=== PATIENT | male | born 1965 | race Caucasian/White ===

== ENCOUNTER 2022-09-07 15:05 | Emergency (ER) | payer BC ==
[2022-09-07 15:40] VITALS: BP 134/80; PULSE 59; RESP 118; TEMP 97.8
[2022-09-07] MEDS ORDERED: LIDOCAINE 1% INJ 10MG/ML (20 ML MDV) SQ ONE (16:19)
--- NOTE | 2022-09-07 16:27 | ED ---
Wound/Laceration HPI - General Chief Complaint: Wound/Laceration Stated Complaint: Left Leg Laceration Time Seen by Provider: 09/07/22 16:11 Source: patient, RN notes reviewed Mode of arrival: wheelchair Limitations: no limitations - History of Present Illness Initial Comments: This is a 49-year-old male who presents to the emergency department for a lac eration. Patient states that he cut his left ankle while moving a piece of sheet metal earlier today. Pain is controlled at this time. Tetanus vaccine is up-to-date. Denies any fevers, chills, sore throat, cough, dyspnea, chest pain, palpitations, abdominal pain, nausea, vomiting, diarrhea, back pain, or headaches. - Related Data Allergies Allergy/AdvReac Type Severity Reaction Status Date / Time No Known Allergies Allergy Verified 09/07/22 15:40 Review of Systems ROS Statement: Those systems with pertinent positive or pertinent negative responses have been documented in the HPI. ROS Other: All systems not noted in ROS Statement are negative. Past Medical History Past Medical History: No Reported History History of Any Multi-Drug Resistant Organisms: None Reported Past Surgical History: No Surgical Hx Reported Past Psychological History: No Psychological Hx Reported Smoking Status: Never smoker Past Alcohol Use History: Rare Past Drug Use History: None Reported General Exam Limitations: no limitations General appearance: alert, in no apparent distress Head exam: Present: atraumatic, normocephalic, normal inspection Respiratory exam: Present: normal lung sounds bilaterally. Absent: respiratory distress, wheezes, rales, rhonchi, stridor Cardiovascular Exam: Present: regular rate, normal rhythm, normal heart sounds. Absent: systolic murmur, diastolic murmur, rubs, gallop, clicks Neurological exam: Present: alert, oriented X3, CN II-XII intact Psychiatric exam: Present: normal affect, normal mood Skin exam: Present: other (4 cm laceration to the anterior aspect of the left ankle. Active bleeding. Visible subcutaneous tissue.) Course Vital Signs 09/07/22 15:36 Temperature 97.8 F Pulse Rate 59 L Respiratory 118 H Rate Blood Pressure 134/80 O2 Sat by Pulse 97 Oximetry Procedures - Laceration Laceration #1 Consent Obtained: verbal consent Indication: laceration Site: lower extremity Size (cm): 4 Description: linear Depth: simple, single layer Anesthetic Used: lidocaine 1% Anesthesia Technique: local infiltration Amount (mls): 5 Pre-repair: wound explored, irrigated extensively Type of Sutures: nylon Size of Sutures: 4-0 Number of Sutures: 5 Technique: simple, interrupted Medical Decision Making - Medical Decision Making This is a 57-year-old male who presents to the emergency department for a laceration. Was pt. sent in by a medical professional or institution? @ -No Did you speak to anyone other than the patient for history? @ -No Did you review nursing and triage notes? @ -Yes, and I agree, it is accurate with regards to the patient's symptoms. Were old charts reviewed? @ -No Differential Diagnosis? @ -Not applicable EKG interpreted by me (3pts min.)? @ -Not obtained X-rays interpreted by me (1pt min.)? @ -Not obtained CT interpreted by me (1pt min.)? @ -Not obtained U/S interpreted by me (1pt. min.)? @ -Not obtained What testing was considered but not performed? (CT, X-rays, U/S, labs)? Why? @ -None What meds were considered but not given? Why? @ -None Did you discuss the management of the patient with other professionals? @ -No Did you reconcile home meds? @ -No Was smoking cessation discussed for >3mins.? @ -No Was critical care preformed (if so, how long)? @ -No Were there social determinants of health that impacted care today? How? (Homelessness, low income, unemployed, alcoholism, drug addiction, transportation, low edu. Level, literacy, decrease access to med. care, halfway, rehab)? @ -No Was there de-escalation of care discussed even if they declined? (Discuss DNR or withdrawal of care, Hospice)? @ -No What co-morbidities impacted this encounter? (DM, HTN, Smoking, COPD, CAD, Cancer, CVA, Hep., AIDS, mental health diagnosis, sleep apnea, morbid obesity)? @ -None Was patient admitted / discharged? @ -Discharged. Laceration was thoroughly cleansed and sutures were applied. Tetanus vaccine is already up-to-date. Advised ibuprofen and Tylenol as needed for pain relief. He is instructed to return in 7-10 days for suture removal. Undiagnosed new problem with uncertain prognosis? @ -None Drug Therapy requiring intensive monitoring for toxicity (Heparin, Nitro, In sulin, Cardizem)? @ -None Were any procedures done? @ -Suture placement Diagnosis/symptom? @ -Laceration Acute, or Chronic, or Acute on Chronic? @ -Acute Uncomplicated (without systemic symptoms) or Complicated (systemic symptoms)? @ -Uncomplicated Side effects of treatment? @ -None Exacerbation, Progression, or Severe Exacerbation] @ -Not applicable Poses a threat to life or bodily function? @ -No Return precautions reviewed in depth, the patient is instructed to return to the emergency department with any new, worsening, or concerning symptoms. Patient verbalized understanding. This case was discussed in detail with the attending ED physician, Dr. Cason. Presentation, findings, and treatment plan discussed in detail as well. Disposition Clinical Impression: Laceration Disposition: HOME SELF-CARE Instructions (If sedation given, give patient instructions): Care For Your Stitches (ED) Additional Instructions: Return to the emergency department with any new, worsening, or concerning symptoms and in 7-10 days for removal of the stitches. Alternate with ibuprofen and Tylenol as needed for pain relief. Follow up with your primary care provider in 1-2 days. Is patient prescribed a controlled substance at d/c from ED?: No Referrals: Mike Lopez MD [Primary Care Provider] - 1-2 days
== END 2022-09-07 17:17 | disposition home or self-care (01) ==
LOC: EC 15:05
DX: S91.012A Laceration without foreign body, left ankle, initial encounter (principal); W26.8XXA Contact with other sharp object(s), not elsewhere classified, initial encounter
CPT/HCPCS: 12002; 99282

== ENCOUNTER 2022-12-04 17:16 | Observation (INO) | payer BC ==
[2022-12-04 17:57] LABS: Basophils % (A) 0 %; Eosinophils # (A) 0.2 k/uL (0-0.7); Eosinophils % (A) 2 %; HCT 46.5 % (39.0-53.0); HGB 15.9 gm/dL (13.0-17.5); Lymphocytes # (A) 2.5 k/uL (1.0-4.8); Lymphocytes % (A) 34 %; MCHC 34.2 g/dL (31.0-37.0); MCV 87.8 fL (80.0-100.0); Monocytes # (A) 0.4 k/uL (0-1.0); Monocytes % (A) 5 %; Neutrophils % (A) 55 %; Platelet Count 281 k/uL (150-450); RBC 5.29 m/uL (4.30-5.90); RDW 12.7 % (11.5-15.5); WBC 7.2 k/uL (3.8-10.6)
[2022-12-04 18:03] LABS: AST 29 U/L (17-59); African American GFR (CKD) >90 (>60 ml/min/1.73 sqM); Albumin 4.3 g/dL (3.5-5.0); Alkaline Phosphatase 116 U/L (38-126); Anion Gap 11 mmol/L; Blood Urea Nitrogen 16 mg/dL (9-20); Calcium 9.4 mg/dL (8.4-10.2); Carbon Dioxide 21 mmol/L (22-30); Chloride 107 mmol/L (98-107); Glucose 100 mg/dL (74-99); Magnesium 2.2 mg/dL (1.6-2.3); Non-African American GFR(CKD) >90 (>60 ml/min/1.73 sqM); Potassium 4.4 mmol/L (3.5-5.1); Sodium 139 mmol/L (137-145); Total Bilirubin 0.4 mg/dL (0.2-1.3); Total Protein 7.8 g/dL (6.3-8.2)
[2022-12-04 18:04] LABS: Partial Thromboplastin Time 26.5 sec (22.0-30.0); Prothrombin Time 10.6 sec (10.0-12.5)
--- NOTE | 2022-12-04 18:29 | XR ---
EXAMINATION TYPE: XR chest 2V DATE OF EXAM: 12/04/2022 COMPARISON: NONE HISTORY: Chest pain. TECHNIQUE: Frontal and lateral views of the chest are obtained. FINDINGS: There is no focal air space opacity, pleural effusion, or pneumothorax seen. The cardiac silhouette size is within normal limits. The osseous structures are intact. IMPRESSION: No acute cardiopulmonary process.
[2022-12-04] MEDS ORDERED: DILTIAZEM DRIP BOLUS FROM BAG 1 MG SOLN IV ONE (18:39)
[2022-12-04] MEDS ORDERED: DILTIAZEM 125 MG in SODIUM CHLORIDE 0.9% 100 ML IV SCH (19:15)
[2022-12-04 19:35] LABS: ALT 41 U/L (4-49)
--- NOTE | 2022-12-04 19:52 | ED ---
General Adult HPI - General Chief complaint: Chest Pain Stated complaint: Chest Pain,Racing Heartbeat Time Seen by Provider: 12/04/22 17:20 Source: patient Mode of arrival: wheelchair Limitations: no limitations - History of Present Illness Initial comments: 57-year-old male with no reported past medical history who presents to the emergency department reporting chest pain and rapid heart rate. States that his symptoms have been present for the past couple of weeks. He has intermittent fast heart rate however he states it usually doesn't last long. He saw his primary care doctor and mentioned it to him. They reported that the patient needed a heart monitor which she never obtained. Today the patient has had persistently elevated heart rate which made him come into the emergency room for evaluation. He denies any cardiac history. Reports that his mom has a history of valvular A. fib while his father has a history of non-valvular A. fib. Patient has had a stress test however this was greater than 10 years ago. He reports to a constant pressure in his chest. No associated shortness of breath. No calf pain or swelling. No history of DVT or PE. No ripping or tearing sensation to his back. No other alleviating, precipitating or modifying factors - Related Data Home Medications Medication Instructions Recorded Confirmed No Known Home Medications 12/04/22 12/04/22 Allergies Allergy/AdvReac Type Severity Reaction Status Date / Time No Known Allergies Allergy Verified 12/04/22 18:19 Review of Systems ROS Statement: Those systems with pertinent positive or pertinent negative responses have been documented in the HPI. ROS Other: All systems not noted in ROS Statement are negative. Past Medical History Past Medical History: No Reported History History of Any Multi-Drug Resistant Organisms: None Reported Past Surgical History: No Surgical Hx Reported Past Psychological History: No Psychological Hx Reported Smoking Status: Never smoker Past Alcohol Use History: Rare Past Drug Use History: None Reported General Exam Limitations: no limitations General appearance: alert, in no apparent distress Head exam: Present: atraumatic, normocephalic, normal inspection Eye exam: Present: normal appearance, PERRL, EOMI. Absent: scleral icterus, conjunctival injection, periorbital swelling ENT exam: Present: normal exam, mucous membranes moist Neck exam: Present: normal inspection. Absent: tenderness, meningismus, lymphadenopathy Respiratory exam: Present: normal lung sounds bilaterally. Absent: respiratory distress, wheezes, rales, rhonchi, stridor Cardiovascular Exam: Present: tachycardia, irregular rhythm, normal heart sounds. Absent: systolic murmur, diastolic murmur, rubs, gallop, clicks GI/Abdominal exam: Present: soft, normal bowel sounds. Absent: distended, tenderness, guarding, rebound, rigid Extremities exam: Present: normal inspection, full ROM, normal capillary refill. Absent: tenderness, pedal edema, joint swelling, calf tenderness Back exam: Present: normal inspection Neurological exam: Present: alert, oriented X3, CN II-XII intact Psychiatric exam: Present: normal affect, normal mood Skin exam: Present: warm, dry, intact, normal color. Absent: rash Course Vital Signs 12/04/22 12/04/22 12/04/22 17:20 18:28 18:53 Temperature 97.4 F L Pulse Rate 63 156 H Pulse Rate [ 158 H Refinery Operator Visbreaking ] Respiratory 18 6 L Rate Blood Pressure 123/79 O2 Sat by Pulse 97 Oximetry 12/04/22 12/04/22 12/04/22 18:54 18:56 18:58 Temperature Pulse Rate 144 H 151 H 156 H Pulse Rate [ Refinery Operator Visbreaking ] Respiratory 14 13 28 H Rate Blood Pressure O2 Sat by Pulse 97 98 Oximetry 12/04/22 12/04/22 12/04/22 19:00 19:02 19:04 Temperature Pulse Rate 156 H 98 107 H Pulse Rate [ Refinery Operator Visbreaking ] Respiratory 14 18 17 Rate Blood Pressure 111/91 O2 Sat by Pulse 98 97 96 Oximetry 12/04/22 12/04/22 12/04/22 19:06 19:08 19:10 Temperature Pulse Rate 110 H 105 H 96 Pulse Rate [ Refinery Operator Visbreaking ] Respiratory 16 Rate Blood Pressure 111/91 O2 Sat by Pulse 95 96 97 Oximetry 12/04/22 12/04/22 12/04/22 19:12 19:14 19:30 Temperature Pulse Rate 92 102 H 101 H Pulse Rate [ Refinery Operator Visbreaking ] Respiratory 17 Rate Blood Pressure 111/91 O2 Sat by Pulse 97 98 96 Oximetry 12/04/22 12/04/22 12/04/22 19:45 20:00 20:15 Temperature Pulse Rate 98 71 73 Pulse Rate [ Refinery Operator Visbreaking ] Respiratory 18 18 17 Rate Blood Pressure 131/95 131/95 118/86 O2 Sat by Pulse 97 97 97 Oximetry 12/04/22 12/04/2212/04/23 20:30 21:00 21:30 Temperature Pulse Rate 72 86 114 H Pulse Rate [ Refinery Operator Visbreaking ] Respiratory 16 20 Rate Blood Pressure 118/86 121/75 118/82 O2 Sat by Pulse 96 95 96 Oximetry 12/04/22 22:00 Temperature Pulse Rate 161 H Pulse Rate [ Refinery Operator Visbreaking ] Respiratory 19 Rate Blood Pressure 106/91 O2 Sat by Pulse 96 Oximetry Medical Decision Making - Medical Decision Making Was pt. sent in by a medical professional or institution (, PA, IT INVESTMENT/PORTFOLIO MANAGER, urgent care, hospital, or penitentiary...) When possible be specific @ -No Did you speak to anyone other than the patient for history (EMS, parent, family, police, friend...)? What history was obtained from this source @ -Spoke with the patient's significant other Did you review nursing and triage notes (agree or disagree)? Why? @ -I reviewed and agree with nursing and triage notes Were old charts reviewed (outside hosp., previous admission, EMS record, old EKG, old radiological studies, urgent care reports/EKG's, penitentiary records)? Report findings @ -No old charts were reviewed Differential Diagnosis (chest pain, altered mental status, abdominal pain women, abdominal pain men, vaginal bleeding, weakness, fever, dyspnea, syncope, headache, dizziness, GI bleed, back pain, seizure, CVA, palpatations, mental health, musculoskeletal)? @ -Differential Palpitations Ventricular arrhythmias, atrial arrhythmias, myocardial infarction, anemia, thyrotoxicosis, electrolyte imbalance, hypokalemia, pulmonary embolism, pulmonary disease, drugs, alcohol, anxiety, stress.... This is not meant to be an all-inclusive list. EKG interpreted by me (3pts min.). @ -EKG done at 1727 demonstrates sinus rhythm with a rate of 74. CA interval 149. QRS 89. QTC of 379. No acute ST segment elevations or depressions Repeat EKG done at 1823 demonstrates atrial flutter/tachycardia with a rate of 142. QRS 84. QTC of 350. No acute ST segment elevations or depressions Third EKG demonstrates sinus rhythm with rate of 67. CA interval 166. QRS 88. QTC of 380. No acute ST segment elevations or depressions X-rays interpreted by me (1pt min.). @ -Yes and demonstrates no acute process CT interpreted by me (1pt min.). @ -None done U/S interpreted by me (1pt. min.). @ -None done What testing was considered but not performed or refused? (CT, X-rays, U/S, labs)? Why? @ -None What meds were considered but not given or refused? Why? @ -None Did you discuss the management of the patient with other professionals (professionals i.e. DrLuma, PA, IT INVESTMENT/PORTFOLIO MANAGER, lab, RT, psych nurse, social group worker, olive grower, teacher, business services officer, welfare case worker)? Give summary @ -Hustler with Dr. Bae for admission Was smoking cessation discussed for >3mins.? @ -No Was critical care preformed (if so, how long)? @ -Yes, 35 minutes for management of heparin and Cardizem drip Were there social determinants of health that impacted care today? How? (Homelessness, low income, unemployed, alcoholism, drug addiction, transportation, low edu. Level, literacy, decrease access to med. care, senior care, rehab)? @ -No Was there de-escalation of care discussed even if they declined (Discuss DNR or withdrawal of care, Hospice)? DNR status @ -No What co-morbidities impacted this encounter? (DM, HTN, Smoking, COPD, CAD, Cancer, CVA, ARF, Chemo, Hep., AIDS, mental health diagnosis, sleep apnea, morbid obesity)? @ -None Was patient admitted / discharged? Hospital course, mention meds given and route, prescriptions, significant lab abnormalities, going to OR and other pertinent info. @ -Upon arrival patient was evaluated in the waiting room. 12-lead EKG was obtained which demonstrates normal sinus rhythm. Laboratory studies were obtained. The patient was then placed in a room. Once on the heart monitor was found that the patient was in A. fib/flutter. Repeat EKG was performed. IV was established. Laboratory studies were conducted and the patient has a chest x- ray performed. Patient is started on a Cardizem drip. Heparin is additionally added as patient does not have any contraindications. His Chadsvasc is 0. Patient does convert to a normal sinus rhythm. Repeat EKG is performed and the Cardizem is shut off. Patient will still be admitted for cardiology consultation and echo. Patient was agreeable to this and is admitted in stable condition Undiagnosed new problem with uncertain prognosis? @ -Yes Drug Therapy requiring intensive monitoring for toxicity (Heparin, Nitro, Insulin, Cardizem)? @ -Yes, Cardizem and heparin Were any procedures done? @ -No Diagnosis/symptom? @ -New onset A. fib with RVR Acute, or Chronic, or Acute on Chronic? @ -Acute Uncomplicated (without systemic symptoms) or Complicated (systemic symptoms)? @ -Complicated Side effects of treatment? @ -Bleeding, hypotension Exacerbation, Progression, or Severe Exacerbation? @ -No Poses a threat to life or bodily function? How? (Chest pain, [place], [place], pneumonia, PE, COPD, DKA, ARF, appy, cholecystitis, CVA, Diverticulitis, Homicidal, Suicidal, threat to staff... and all critical care pts) @ -Yes patient does have markedly elevated heart rate before treatment - Lab Data Result diagrams: 12/04/22 17:37 12/04/22 17:37 Lab Results 12/04/22 12/04/22 12/04/22 Range/Units 17:37 17:37 17:37 WBC 7.2 (3.8-10.6) k/uL RBC 5.29 (4.30-5.90) m/uL Hgb 15.9 (13.0-17.5) gm/dL Hct 46.5 (39.0-53.0) % MCV 87.8 (80.0-100.0) fL MCH 30.0 (25.0-35.0) pg MCHC 34.2 (31.0-37.0) g/dL RDW 12.7 (11.5-15.5) % Plt Count 281 (150-450) k/uL MPV 8.0 Neutrophils % 55 % Lymphocytes % 34 % Monocytes % 5 % Eosinophils % 2 % Basophils % 0 % Neutrophils # 4.0 (1.3-7.7) k/uL Lymphocytes # 2.5 (1.0-4.8) k/uL Monocytes # 0.4 (0-1.0) k/uL Eosinophils # 0.2 (0-0.7) k/uL Basophils # 0.0 (0-0.2) k/uL PT 10.6 (10.0-12.5) sec INR 1.0 (<1.2) APTT 26.5 (22.0-30.0) sec Sodium 139 (137-145) mmol/L Potassium 4.4 (3.5-5.1) mmol/L Chloride 107 (98-107) mmol/L Carbon Dioxide 21 L (22-30) mmol/L Anion Gap 11 mmol/L BUN 16 (9-20) mg/dL Creatinine 0.71 (0.66-1.25) mg/dL Est GFR (CKD-EPI)AfAm >90 (>60 ml/min/1.73 sqM) Est GFR (CKD-EPI)NonAf >90 (>60 ml/min/1.73 sqM) Glucose 100 H (74-99) mg/dL Calcium 9.4 (8.4-10.2) mg/dL Magnesium 2.2 (1.6-2.3) mg/dL Total Bilirubin 0.4 (0.2-1.3) mg/dL AST 29 (17-59) U/L ALT 41 (4-49) U/L Alkaline Phosphatase 116 (38-126) U/L Troponin I (0.000-0.034) ng/mL Total Protein 7.8 (6.3-8.2) g/dL Albumin 4.3 (3.5-5.0) g/dL TSH (0.465-4.680) mIU/L 12/04/22 12/04/22 Range/Units 17:37 18:48 WBC (3.8-10.6) k/uL RBC (4.30-5.90) m/uL Hgb (13.0-17.5) gm/dL Hct (39.0-53.0) % MCV (80.0-100.0) fL MCH (25.0-35.0) pg MCHC (31.0-37.0) g/dL RDW (11.5-15.5) % Plt Count (150-450) k/uL MPV Neutrophils % % Lymphocytes % % Monocytes % % Eosinophils % % Basophils % % Neutrophils # (1.3-7.7) k/uL Lymphocytes # (1.0-4.8) k/uL Monocytes # (0-1.0) k/uL Eosinophils # (0-0.7) k/uL Basophils # (0-0.2) k/uL PT (10.0-12.5) sec INR (<1.2) APTT (22.0-30.0) sec Sodium (137-145) mmol/L Potassium (3.5-5.1) mmol/L Chloride (98-107) mmol/L Carbon Dioxide (22-30) mmol/L Anion Gap mmol/L BUN (9-20) mg/dL Creatinine (0.66-1.25) mg/dL Est GFR (CKD-EPI)AfAm (>60 ml/min/1.73 sqM) Est GFR (CKD-EPI)NonAf (>60 ml/min/1.73 sqM) Glucose (74-99) mg/dL Calcium (8.4-10.2) mg/dL Magnesium (1.6-2.3) mg/dL Total Bilirubin (0.2-1.3) mg/dL AST (17-59) U/L ALT (4-49) U/L Alkaline Phosphatase (38-126) U/L Troponin I <0.012 (0.000-0.034) ng/mL Total Protein (6.3-8.2) g/dL Albumin (3.5-5.0) g/dL TSH 1.620 (0.465-4.680) mIU/L Disposition Clinical Impression: Chest pain, Atrial fibrillation and flutter Disposition: ADMITTED IP TO THIS [facility] Condition: Stable Is patient prescribed a controlled substance at d/c from ED?: No Time of Disposition: 20:39 Decision to Admit Reason: Admit from EC Decision Date: 12/04/22 Decision Time: 20:39
[2022-12-04] MEDS ORDERED: HEPARIN SODIUM 1,000 UN/ML (10ML VL) IV ONE (20:19)
[2022-12-04] MEDS ORDERED: HEPARIN SODIUM 1,000 UN/ML (10ML VL) IV PRN (20:19)
[2022-12-04] MEDS ORDERED: HEPARIN SOD,PORK IN 0.45% NACL 25,000 UNIT in 0.45% NACL 1 250ML.BAG IV SCH (20:30)
[2022-12-04] MEDS ORDERED: NALOXONE 0.4 MG/ML 1 ML VIAL IV PRN (20:39)
[2022-12-04] MEDS ORDERED: METOPROLOL TARTRATE 25 MG TAB PO STA (21:30)
--- NOTE | 2022-12-05 00:57 | P.HPIM ---
History of Present Illness H&P Date: 12/05/22 Patient is a 57-year-old male with no known PMH who presented to the emergency room with complaints of palpitations and chest discomfort. Patient has been experiencing left sided intermittent palpitations for 6 months, with associated mild chest pressure. Denied shortness of breath, nausea, vomiting, diaphoresis. Reports that father had history of nonvalvular A. fib and mother had valvular A. fib for which they are on anticoagulants. Chest x-ray in the emergency room was unremarkable. EKG revealed A. fib at 142 bpm. Laboratory evaluation was reviewed with troponin less than 0.012, TSH 1. 620, glucose 100, CO2 21. ED documentation reviewed and case discussed with ED provider. Review of systems: Pertinent positives and negatives as discussed in HPI, a complete review of systems was performed and all other systems are negative. Physical examination: Vital signs reviewed General: non toxic, no distress, appears at stated age, overweight Derm: no unusual rashes/lesions, warm Head: atraumatic, normocephalic, symmetric Eyes: EOMI, no lid lag, anicteric sclera, pupils equal round reactive to light ENT: Nose and ears atraumatic Neck: No cervical lymphadenopathy, trachea midline, supple Mouth: no lip lesion, mucus membranes moist Cardiovascular: S1S2 reg, no murmur, positive dorsalis pedis pulse bilateral, no edema Lungs: CTA bilateral, no rhonchi, no rales, no accessory muscle use Abdominal: soft, nontender to palpation, no guarding Ext: muscle strength 5 out of 5 in all 4 extremities grossly, no gross muscle atrophy, no contractures, Neuro: CN II-XI grossly intact, no gross focal neuro deficits Psych: Alert, oriented, appropriate affect Assessment: Newly diagnosed A. fib with RVR Imaging: Chest x-ray in the emergency room was unremarkable. EKG revealed A. fib at 142 bpm. Data Review: Laboratory evaluation was reviewed with troponin less than 0.012, TSH 1.620, glucose 100, CO2 21. Plan: Continue heparin and Cardizem infusions at this time Cardiology consulted Cardiac monitoring Echocardiogram DVT prophylaxis: Heparin infusion The patient is admitted with an anticipated less than 2 midnight stay for evaluation of afib CODE STATUS: Full Code Discussed with: Patient Anticipated discharge place: Home Past Medical History Past Medical History: No Reported History History of Any Multi-Drug Resistant Organisms: None Reported Past Surgical History: No Surgical Hx Reported Past Psychological History: No Psychological Hx Reported Smoking Status: Never smoker Past Alcohol Use History: Rare Past Drug Use History: None Reported Medications and Allergies Home Medications Medication Instructions Recorded Confirmed Type No Known Home Medications 12/04/22 12/04/22 History Allergies Allergy/AdvReac Type Severity Reaction Status Date / Time No Known Allergies Allergy Verified 12/04/22 18:19 Physical Exam Vitals: Vital Signs Temp Pulse Pulse Resp BP Pulse Ox 12/05/22 00:16 65 16 97/62 97 12/04/22 23:00 86 18 123/82 94 L 12/04/22 22:30 103 H 17 131/85 95 12/04/22 22:00 161 H 19 106/91 96 12/04/22 21:30 114 H 118/82 96 12/04/22 21:00 86 20 121/75 95 12/04/22 20:30 72 16 118/86 96 12/04/22 20:15 73 17 118/86 97 12/04/22 20:00 71 18 131/95 97 12/04/22 19:45 98 18 131/95 97 12/04/22 19:30 101 H 17 111/91 96 12/04/22 19:14 102 H 98 12/04/22 19:12 92 97 12/04/22 19:10 96 97 12/04/22 19:08 105 H 96 12/04/22 19:06 110 H 16 111/91 95 12/04/22 19:04 107 H 17 96 12/04/22 19:02 98 18 111/91 97 12/04/22 19:00 156 H 14 98 12/04/22 18:58 156 H 28 H 98 12/04/22 18:56 151 H 13 97 12/04/22 18:54 144 H 14 12/04/22 18:53 156 H 6 L 12/04/22 18:28 158 H 12/04/22 17:20 97.4 F L 63 18 123/79 97 Intake and Output 12/04/22 12/04/22 12/05/22 14:59 22:59 06:59 Intake Total 4.5 14.25 Balance 4.5 14.25 Intake: Intake, IV Titration 4.5 14.25 Amount Diltiazem 125 mg In 4.5 14.25 Sodium Chloride 0.9% 100 ml @ 5 MG/HR 5 mls/hr IV .Q24H [facility] Rx#:[id number] Other: Weight 97.522 kg Results CBC & Chem 7: 12/04/22 17:37 12/04/22 17:37 Labs: Abnormal Lab Results - Last 24 Hours (Table) 12/04/22 Range/Units 17:37 Carbon Dioxide 21 L (22-30) mmol/L Glucose 100 H (74-99) mg/dL
[2022-12-05 02:33] LABS: Basophils % (A) 0 %; Eosinophils # (A) 0.2 k/uL (0-0.7); Eosinophils % (A) 3 %; HCT 40.3 % (39.0-53.0); HGB 13.5 gm/dL (13.0-17.5); Lymphocytes # (A) 2.7 k/uL (1.0-4.8); Lymphocytes % (A) 38 %; MCH 29.7 pg (25.0-35.0); MCHC 33.5 g/dL (31.0-37.0); MCV 88.7 fL (80.0-100.0); Mean Platelet Volume 7.9; Monocytes # (A) 0.4 k/uL (0-1.0); Monocytes % (A) 6 %; Neutrophils # (A) 3.6 k/uL (1.3-7.7); Neutrophils % (A) 50 %; Platelet Count 247 k/uL (150-450); RBC 4.55 m/uL (4.30-5.90); RDW 12.9 % (11.5-15.5); WBC 7.1 k/uL (3.8-10.6)
[2022-12-05 02:41] LABS: Partial Thromboplastin Time 35.3 sec (22.0-30.0); Prothrombin Time 10.6 sec (10.0-12.5)
[2022-12-05 03:30] LABS: African American GFR (CKD) >90 (>60 ml/min/1.73 sqM); Anion Gap 7 mmol/L; Blood Urea Nitrogen 18 mg/dL (9-20); Calcium 8.8 mg/dL (8.4-10.2); Carbon Dioxide 22 mmol/L (22-30); Chloride 111 mmol/L (98-107); Glucose 119 mg/dL (74-99); Non-African American GFR(CKD) >90 (>60 ml/min/1.73 sqM); Potassium 4.2 mmol/L (3.5-5.1); Sodium 140 mmol/L (137-145)
[2022-12-05] MEDS: METOPROLOL TARTRATE 25 MG TAB PO SCH ×2 (08:56→17:59)
--- NOTE | 2022-12-05 12:37 | CA ---
Transthoracic Echo Report Name: Allen Moise Age: 57 Gender: M : 1965 Exam Date: 12/05/2022 11:03 Exam Location: [place] [facility] Ht (in): Wt (lb): Ordering Physician: Elsa Manriquez DO Attending/Referring Phys: [id number], Declan Plate Corrector Damaso Arnaldo Procedure CPT: Indications: New onset afib Cardiac Hx: Technical Quality: Fair Contrast 1: Total Dose (mL): Contrast 2: Total Dose (mL): MEASUREMENTS (Male / Female) Normal Values 2D ECHO LV Diastolic Diameter PLAX 4.6 cm 4.2 - 5.9 / 3.9 - 5.3 cm LV Systolic Diameter PLAX 3.8 cm IVS Diastolic Thickness 1.1 cm 0.6 - 1.0 / 0.6 - 0.9 cm LVPW Diastolic Thickness 1.0 cm 0.6 - 1.0 / 0.6 - 0.9 cm LV Relative Wall Thickness 0.5 RV Internal Dim ED PLAX 3.1 cm LVOT Diameter 2.4 cm Aortic Root Diameter 3.3 cm LA Systolic Diameter LX 2.6 cm 3.0 - 4.0 / 2.7 - 3.8 cm LV Diastolic Volume MOD BP 69.9 cm??? 67 - 155 / 56 - 104 cm??? LV Systolic Volume MOD BP 27.5 cm??? 22 - 58 / 19 - 49 cm??? LV Ejection Fraction MOD BP 60.7 % >= 55 % LV Diastolic Volume MOD 4C 68.4 cm??? LV Systolic Volume MOD 4C 30.9 cm??? LV Ejection Fraction MOD 4C 54.8 % LV Diastolic Length 4C 7.8 cm LV Systolic Length 4C 7.3 cm LV Diastolic Volume MOD 2C 66.8 cm??? LV Systolic Volume MOD 2C 24.2 cm??? LV Ejection Fraction MOD 2C 63.8 % LV Diastolic Length 2C 8.4 cm LV Systolic Length 2C 7.5 cm LA Volume 48.3 cm??? 18 - 58 / 22 - 52 cm??? DOPPLER AV Peak Velocity 166.0 cm/s AV Peak Gradient 11.0 mmHg LVOT Peak Velocity 102.1 cm/s LVOT Peak Gradient 4.2 mmHg LVOT Velocity Time Integral 21.7 cm LVOT Stroke Volume 101.2 cm??? AV Area Cont Eq pk 2.9 cm??? MV Peak Velocity 100.5 cm/s MV Peak Gradient 4.0 mmHg MV Mean Velocity 54.7 cm/s MV Mean Gradient 1.4 mmHg MV Velocity Time Integral 39.9 cm MR Peak Velocity 533.8 cm/s MR Peak Gradient 114.0 mmHg MV E' Velocity 9.8 cm/s TR Peak Velocity 184.6 cm/s TR Peak Gradient 13.6 mmHg Right Ventricular Systolic Press 19.8 mmHg PV Peak Velocity 92.2 cm/s PV Peak Gradient 3.4 mmHg FINDINGS Left Ventricle Normal LV size and wall thickness. Left ventricular ejection fraction is estimated at 50-55 %. No obvious regional wall motion abnormality Right Ventricle Normal right ventricular size. Right Atrium Normal right atrial size. Left Atrium Normal left atrial size. Mitral Valve Structurally normal mitral valve. Mild to moderate MR. Aortic Valve Trileaflet aortic valve. Mild AV sclerosis/calcification. No aortic valve stenosis or regurgitation. Tricuspid Valve Structurally normal tricuspid valve. Mild TR. Pulmonic Valve Pulmonic valve not well visualized. No pulmonic regurgitation. Pericardium Normal pericardium. Aorta Normal size aortic root. CONCLUSIONS Normal LV size and systolic function. LVEF estimated at 55% No obvious regional wall motion abnormality Moderate MR No pericardial effusion RVSP estimated at approximately 24 mmHg Previewed by: Dr Humberto Han (Electronically Signed) Final Date: 05 December 2022 12:36
--- NOTE | 2022-12-05 17:33 | P.DS ---
Providers Date of admission: 12/04/22 20:39 Expected date of discharge: 12/05/22 Attending physician: Dagoberto Bae MD Consults: 12/04/22 20:39 Consult Physician Urgent Consulting Provider: [facility] Consult Reason/Comments: new onset afib with rvr Do you want consulting provider notified?: Yes Primary care physician: Mike Lopez Hospital Course: Discharge Diagnosis: 2:1 Atrial Flutter with rapid ventricular response Hospital Course: Patient is a 57-year-old male with no known history who presented to the emergency department due to rapid heart rate resulting in chest tightness. In the emergency department he underwent an extensive evaluation. On arrival his heart rate was in the 150s. His initial ekg appears to be atrial flutter with rapid ventriculr response. He was started on cardizem and heparin gtt. his initial laboratory analysis was essentially unremarkable. TSH was normal, magnesium was normal, and initial troponin was less than 0.012. Arrangements were made for admission. He then converted to normal sinus rhythm. He was given a dose of oral metoprolol. He was weaned off the Cardizem drip and heparin drip was continued. The remainder of his troponins remained negative. As he has been having symptoms if intermittent palpitations for quite some time it was determined he would benefit from a beta blockade an outpatient basis to decrease these episodes. He was noted to have a CHADSVaSc of 0, however he has a stong family hx of A fib. We discussed that these is increased risk of stroke with A fib, he would like to discuss with cardiology his exact risk and see if the metoprolol stops his palpitations. We discussed options of ASA vs Eliquis. At this time he would like an Rx for eliquis and will discuss more with cardiology. He had and echo which showed a preserved EF of 50-55%, wiht mild to moderate MR. He was determined stable for discharge. Follow-up: He will follow with Dr. Brumfield in 1 week, Dr. Lopez in 2-3 days, new RX are metoprolol 25 mg BID and Eliquis 5 mg BID. Patient seen and examined at bedside. We discussed his diagnosis. His parents both have A fib. He is not haing any more palpitations. He denies shortness of breath, lightheadedness, dizziness. He would like to avoid a debilitating storke and both his parents have been on blood thinner in the past. Vital signs reviewed and stable. General: nontoxic, no distress, appears at stated age Cardiovascular: S1S2 reg, no murmur, positive posterior tibial pulse bilateral, Lungs: CTA bilateral, no rhonchi, no rales , no accessory muscle use Abdominal: soft, nontender to palpation, no guarding, no appreciable organomegaly Ext: no gross muscle atrophy, no edema b/l lower extremities, no contractures Neuro: CN II-XI grossly intact, no focal neuro deficits Psych: Alert, oriented, appropriate affect A total of 32 minutes of time were spent preparing this complex discharge sum keiko. Patient was discharged on 12/05/22. This dictation was prepared using [employer] voice recognition software. Though every attempt is made to correct errors during dictation some may still exist. Patient Condition at Discharge: Stable Plan - Discharge Summary New Discharge Prescriptions: New Metoprolol Tartrate [Lopressor] 25 mg PO BID #60 tab Apixaban [Eliquis] 5 mg PO BID #60 tab Discharge Medication List Apixaban [Eliquis] 5 mg PO BID #60 tab 12/05/22 [Rx] Metoprolol Tartrate [Lopressor] 25 mg PO BID #60 tab 12/05/22 [Rx] Follow up Appointment(s)/Referral(s): Bo Brumfield DO [STAFF PHYSICIAN] - 1 Week Mike Lopez MD [Primary Care Provider] - 1-2 days Patient Instructions/Handouts: Apixaban (By mouth), A-fib (Atrial Fibrillation) (DC) Activity/Diet/Wound Care/Special Instructions: Activity: As tolerated Diet: Heart Health Special Instructions: Please call [facility] in the morning to make a new patient, hospital follow-up appointment please seek medical care if you become dizzy, light headed, short of breath, develop chest pain, or have prolong palpitations. Remember if you fall and strike your head please go to the nearest emergency department for a CT scan of your head. Discharge Disposition: HOME SELF-CARE
--- NOTE | 2022-12-05 17:41 | P.CRDCN ---
History of Present Illness History of present illness: HISTORY OF PRESENTING ILLNESS This is a pleasant 57-year-old with no past medical history who presents secondary to A. fib with RVR. Patient has been noticing palpitations usually only occurring for 30-60 minutes somewhat increasing in frequency over last few months. He had more significant episode that lasted all day and therefore came to emergency department was found to be in atrial fibrillation with RVR. He was started on Cardizem drip and then converted. Echocardiogram shows preserved EF 55%. He denies any hypertension, diabetes mellitus type 2, stroke, TIA, CAD, heart failure. He does have family history parents with A. fib. His chads vasc score 0. He does drink approximately 12 beers throughout the week and sometimes in 1 or 2 nights sometimes spread out. He also drinks approximately 2 cups of coffee a day and occasionally monsters. No tobacco or illicit drugs. No lightheadedness or syncope. REVIEW OF SYSTEMS At the time of my exam: CONSTITUTIONAL: Denies fever or chills. CARDIOVASCULAR: Denies chest pain, shortness of breath, orthopnea, PND + palpitations. RESPIRATORY: Denies cough. GASTROINTESTINAL: Denies abdominal pain, diarrhea, constipation, nausea or vomiting. MUSCULOSKELETAL: Denies myalgias. NEUROLOGIC: Denies numbness, tingling or weakness. ENDOCRINE: Denies fatigue, weight change, polydipsia or polyurina. GENITOURINARY: Denies burning, hematuria or urgency with micturation. HEMATOLOGIC: Denies history of anemia or bleeding. PHYSICAL EXAMINATION Vital signs reviewed. CONSTITUTIONAL: No apparent distress. HEENT: Head is normocephalic. Pupils are equal, round. Sclerae anicteric. Mucous membranes of the mouth are moist. No JVD. No carotid bruit. CHEST EXAMINATION: Lungs are clear to auscultation. No chest wall tenderness is noted on palpation or with deep breathing. HEART EXAMINATION: Regular rate and rhythm. S1, S2 heard. No murmurs, gallops or rub. ABDOMEN: Soft, nontender. Positive bowel sounds. EXTREMITIES: 2+ peripheral pulses, no lower extremity edema and no calf tenderness. NEUROLOGIC EXAMINATION: Patient is awake, alert and oriented x3. ASSESSMENT 1. Paroxysmal atrial fibrillation, new onset 2. Palpitations 3. Chest pain occurring with A. fib likely mainly related to A. fib PLAN Discussed alcohol cessation or severely lowering alcohol as well as limiting caffeine use. His chads vasc score is 0 and therefore no anticoagulation, discussed and aspirin. Continue with metoprolol however likely would benefit from ablation long-term. Stable for discharge home. Likely outpatient stress testing. Past Medical History Past Medical History: No Reported History History of Any Multi-Drug Resistant Organisms: None Reported Past Surgical History: No Surgical Hx Reported Past Psychological History: No Psychological Hx Reported Smoking Status: Never smoker Past Alcohol Use History: Rare Past Drug Use History: None Reported Medications and Allergies Home Medications Medication Instructions Recorded Confirmed Type Apixaban [Eliquis] 5 mg PO BID #60 tab 12/05/22 Rx Metoprolol Tartrate [Lopressor] 25 mg PO BID #60 tab 12/05/22 Rx Allergies Allergy/AdvReac Type Severity Reaction Status Date / Time No Known Allergies Allergy Verified 12/04/22 18:19 Physical Exam Vitals: Vital Signs Temp Pulse Pulse Resp BP Pulse Ox 12/05/22 13:00 83 20 107/92 95 12/05/22 12:00 97.6 F 66 16 107/92 95 12/05/22 11:00 59 L 16 97/68 98 12/05/22 10:00 68 20 97/64 98 12/05/22 09:00 86 16 125/68 98 12/05/22 07:34 75 20 97/60 99 12/05/22 07:00 66 14 97/64 12/05/22 06:00 72 14 97/64 12/05/22 05:00 64 17 97/64 12/05/22 04:00 72 13 97/64 12/05/22 03:03 71 16 97/64 97 12/05/22 03:00 69 8 L 97/64 12/05/22 02:00 66 15 103/65 12/05/22 01:00 66 18 103/65 12/05/22 00:16 65 16 97/62 97 12/05/22 00:00 107/72 12/04/22 23:01 84 16 120/81 94 L 12/04/22 23:00 86 18 123/82 94 L 12/04/22 22:30 103 H 17 131/85 95 12/04/22 22:00 161 H 19 106/91 96 12/04/22 21:30 114 H 118/82 96 12/04/22 21:00 86 20 121/75 95 12/04/22 20:30 72 16 118/86 96 12/04/22 20:15 73 17 118/86 97 12/04/22 20:00 71 18 131/95 97 12/04/22 19:45 98 18 131/95 97 12/04/22 19:30 101 H 17 111/91 96 12/04/22 19:14 102 H 98 12/04/22 19:12 92 97 12/04/22 19:10 96 97 12/04/22 19:08 105 H 96 12/04/22 19:06 110 H 16 111/91 95 12/04/22 19:04 107 H 17 96 12/04/22 19:02 98 18 111/91 97 12/04/22 19:00 156 H 14 98 12/04/22 18:58 156 H 28 H 98 12/04/22 18:56 151 H 13 97 12/04/22 18:54 144 H 14 12/04/22 18:53 156 H 6 L 12/04/22 18:28 158 H Intake and Output 12/05/22 12/05/22 12/05/22 06:59 14:59 22:59 Intake Total 81.724 Balance 81.724 Intake: Intake, IV Titration 81.724 Amount Diltiazem 125 mg In 14.25 Sodium Chloride 0.9% 100 ml @ 5 MG/HR 5 mls/hr IV .Q24H [facility] Rx#:[id number] Heparin Sod,Pork in 0.45% 67.474 NaCl 25,000 unit In 0.45 % NaCl 1 250ml.bag @ 10.2 UNITS/KG/HR 9.947 mls/hr IV .Q24H [facility] Rx#: [id number] Results 12/05/22 02:20 12/05/22 02:20 Cardiac Enzymes 12/04/22 12/04/22 12/04/22 Range/Units 17:37 17:37 21:23 AST 29 (17-59) U/L Troponin I <0.012 <0.012 (0.000-0.034) ng/mL 12/05/22 Range/Units 02:20 AST (17-59) U/L Troponin I <0.012 (0.000-0.034) ng/mL Coagulation 10/12/05/22 12/05/22 Range/Units 17:37 02:20 08:14 PT 10.6 10.6 (10.0-12.5) sec APTT 26.5 35.3 H 50.6 H (22.0-30.0) sec CBC 12/04/22 12/05/22 Range/Units 17:37 02:20 WBC 7.2 7.1 (3.8-10.6) k/uL RBC 5.29 4.55 (4.30-5.90) m/uL Hgb 15.9 13.5 (13.0-17.5) gm/dL Hct 46.5 40.3 (39.0-53.0) % Plt Count 281 247 (150-450) k/uL Comprehensive Metabolic Panel 12/04/22 12/05/22 Range/Units 17:37 02:20 Sodium 139 140 (137-145) mmol/L Potassium 4.4 4.2 (3.5-5.1) mmol/L Chloride 107 111 H (98-107) mmol/L Carbon Dioxide 21 L 22 (22-30) mmol/L BUN 16 18 (9-20) mg/dL Creatinine 0.71 0.74 (0.66-1.25) mg/dL Glucose 100 H 119 H (74-99) mg/dL Calcium 9.4 8.8 (8.4-10.2) mg/dL AST 29 (17-59) U/L ALT 41 (4-49) U/L Alkaline Phosphatase 116 (38-126) U/L Total Protein 7.8 (6.3-8.2) g/dL Albumin 4.3 (3.5-5.0) g/dL Current Medications Generic Name Dose Route Start Last Admin Trade Name Freq PRN Reason Stop Dose Admin Apixaban 5 mg 12/05/22 21:00 Apixaban 5 Mg Tab PO BID ERLINDA Protocol Heparin Sodium (Porcine) 0 unit 12/04/22 20:19 12/05/22 03:13 Heparin Sodium 1,000 Un/Ml (10ml Vl) IV 12/05/22 22:00 2,400 unit PER PROTOCOL PRN Administration Low PTT Protocol Diltiazem HCl 125 mg/ Sodium 125 mls @ 5 mls/hr 12/04/22 19:15 12/05/22 00:20 Chloride IV 0 mg/hr .Q24H ERLINDA 0 mls/hr Infusion 5 MG/HR Heparin Sodium/Sodium Chloride 250 mls @ 9.947 mls/hr 12/04/22 20:30 12/05/22 03:18 25,000 unit/ Sodium Chloride IV 12/05/22 22:00 12.2 units/kg/hr .Q24H ERLINDA 11.898 mls/hr Titration Protocol 10.2 UNITS/KG/HR Metoprolol Tartrate 25 mg 12/05/22 09:00 12/05/22 08:56 Metoprolol Tartrate 25 Mg Tab PO 25 mg BID ERLINDA Administration Naloxone HCl 0.2 mg 12/04/22 20:39 Naloxone 0.4 Mg/Ml 1 Ml Vial IV Q2M PRN Opioid Reversal Intake and Output 12/05/22 12/05/22 12/05/22 06:59 14:59 22:59 Intake Total 81.724 Balance 81.724 Intake: Intake, IV Titration 81.724 Amount Diltiazem 125 mg In 14.25 Sodium Chloride 0.9% 100 ml @ 5 MG/HR 5 mls/hr IV .Q24H [facility] Rx#:[id number] Heparin Sod,Pork in 0.45% 67.474 NaCl 25,000 unit In 0.45 % NaCl 1 250ml.bag @ 10.2 UNITS/KG/HR 9.947 mls/hr IV .Q24H [facility] Rx#: [id number] 12/05/22 02:20 12/05/22 02:20
[2022-12-05 18:35] VITALS: BP 122/76; PULSE 80; RESP 16; TEMP 98.1
[2022-12-05] MEDS ORDERED: APIXABAN 5 MG TAB PO SCH (21:00)
== END 2022-12-05 18:13 | disposition home or self-care (01) ==
LOC: EC 17:16 → 3SCARD 20:39
PROVIDERS: ADMIT Internal Medicine; ATTEND Internal Medicine
DX: I48.0 Paroxysmal atrial fibrillation (principal); Z79.01 Long term (current) use of anticoagulants; Z79.899 Other long term (current) drug therapy; Z82.49 Family history of ischemic heart disease and other diseases of the circulatory system
CPT/HCPCS: 96376; 96368; 96365; 96366 ×2; 96372; 99285; 36415; 93005; 93306; 80053; 80048; 84443; 83735; 84484 ×2; 85025 ×2; 85610 ×2; 85730 ×2; 71046; G0378 ×2; J1644 ×3